=== PATIENT | male | born 1930 | race Caucasian/White ===

== ENCOUNTER 2022-07-26 15:15 | Inpatient (IN) | payer MEDICARE, BC ==
[~2022-07-26] VITALS: Ht 177.8 cm; Wt 66.2 kg
--- NOTE | 2022-07-26 15:49 | NUR ---
[id number] FOR SYNCOPAL EPISODE FROM [facility] 30 MINS AGO. BG 169 A/O X1 RESPONSIVE TO NAME NOT A RELIABLE HISTORIAN. DENIED PAIN ANYWHERE ON BODY.
[2022-07-26] MEDS ORDERED: APIX2.5T PO (15:52)
[2022-07-26] MEDS ORDERED: ASPI-1169 PO (15:52)
[2022-07-26] MEDS ORDERED: ATOR40TA PO (15:52)
[2022-07-26] MEDS ORDERED: FURO-145 PO (15:52)
[2022-07-26] MEDS ORDERED: FINA5TAB3 PO (15:52)
--- NOTE | 2022-07-26 15:55 | NUR ---
COVID SWAB OBTAINED SENT TO LAB
--- NOTE | 2022-07-26 16:13 | NUR ---
MOVE SHEET SUBMITTED
--- NOTE | 2022-07-26 16:55 | NUR ---
PHLEB AT BEDSIDE FOR BLOOD DRAW
[2022-07-26 17:29] LABS: BASOPHILS % (AUTO) 0.1 % (0.0-2.0); EOSINOPHILS % (AUTO) 0.5 % (0.0-6.0); HEMATOCRIT 42 % (39-51); HEMOGLOBIN 13.5 g/dL (13.5-17.5); LYMPHOCYTES # (AUTO) 0.4 K/uL (0.8-4.8); LYMPHOCYTES % (AUTO) 3.3 % (20.0-44.0); MEAN CORPUSCULAR HGB CONC 33 g/dl (31.0-36.0); MEAN CORPUSCULAR VOLUME 94 fL (80-96); MONOCYTES # (AUTO) 0.3 K/uL (0.1-1.30); MONOCYTES % (AUTO) 2.4 % (2.0-12.0); NEUTROPHILS # (AUTO) 12.5 K/uL (1.8-8.9); NEUTROPHILS % (AUTO) 93.7 % (43.0-81.0); PLATELET COUNT (AUTO) 241 K/uL (150-450); RED BLOOD CELL COUNT(AUTO) 4.42 MIL/uL (4.5-6.0); WHITE BLOOD COUNT (AUTO) 13.3 K/uL (4.3-11.0)
--- NOTE | 2022-07-26 17:31 | NUR ---
PT TAKEN TO CT
[2022-07-26 17:40] LABS: CALCIUM, SERUM 7.8 mg/dL (8.5-10.1); CARBON DIOXIDE 28 mmol/L (21-32); CHLORIDE 103 mmol/L (98-107); CREATININE 1.1 mg/dL (0.6-1.3); GLUCOSE 112 mg/dL (74-106); POTASSIUM 2.9 mmol/L (3.5-5.1); SODIUM SERUM 139 mmol/L (136-145); UREA NITROGEN, BLOOD 10 mg/dL (7-18)
[2022-07-26 17:54] LABS: ALANINE AMINOTRANSFERASE 15 U/L (12-78); ALBUMIN 2.6 g/dL (3.4-5.0); ALKALINE PHOSPHATASE 102 U/L (46-116); ASPARTATE AMINOTRANSFERASE 27 U/L (15-37); BILIRUBIN,DIRECT 0.3 mg/dL (0.0-0.2); BILIRUBIN,TOTAL 1.6 mg/dL (0.2-1.0); TOTAL PROTEIN, SERUM 7.2 g/dL (6.4-8.2)
[2022-07-26] MEDS ORDERED: POTASSIUM CHLORIDE 20 MEQ TAB.PRT.SR PO ONE ×2 (19:00→19:22)
[2022-07-26] MEDS ORDERED: ONDANSETRON HCL/PF 4 MG/2 ML VIAL IVP PRN (20:00)
[2022-07-26] MEDS ORDERED: MAG HYDROX/AL HYDROX/SIMETH 30 ML UDC PO PRN (20:00)
[2022-07-26] MEDS ORDERED: Z GUARD REMEDY 4 OZ OINT TP PRN (20:00)
[2022-07-26] MEDS ORDERED: ZOLPIDEM TARTRATE 5 MG TABLET PO PRN (20:00)
[2022-07-26] MEDS ORDERED: MAGNESIUM HYDROXIDE 30 ML UDC PO PRN (20:00)
[2022-07-26] MEDS ORDERED: ACETAMINOPHEN 325 MG TABLET PO PRN (20:00)
[2022-07-26] MEDS ORDERED: BUMETANIDE INJ 0.25 MG/ML VIAL IV ONE ×2 (21:30→23:00)
[2022-07-26] MEDS ORDERED: ATORVASTATIN 40 MG TABLET PO SCH (22:00)
--- NOTE | 2022-07-26 22:04 | NUR ---
REPORT GIVEN TO DUY HENSLEY FOR ANIA
[2022-07-26 22:10] VITALS: BP 116/65
[2022-07-26 22:20] VITALS: BP 116/65
[2022-07-26] MEDS ORDERED: LEVOFLOXACIN 500 MG /D5W 100ML 500 MG in PREMIX 1 EA IV SCH ×2 (22:30→23:00)
[2022-07-26] MEDS: ATORVASTATIN 40 MG TABLET PO SCH (22:56)
[2022-07-26] MEDS ORDERED: LEVOFLOXACIN 500 MG /D5W 100ML 100 ML IV ONE (22:57)
--- NOTE | 2022-07-26 23:00 | NUR ---
[facility] ASSISTANTPRODUCTION POSTING CLERK NOTES RECEIVED PATIENT FROM ED VIA GURNEY AT 2212 UNDER THE CARE OF ERIK LILLY MD WITH DX OF ACUTE CHF AND SYNCOPE. PATIENT DOES NOT ANSWER MOST OF THE QUESTIONS AND A POOR HISTORIAN. PER PATIENT, HE DOESN'T HAVE ANY FAMILY FOR US TO CALL AND NO MEDICAL RECORDS ATTACHED IN THE CHART. INFORMATION TAKEN FROM MD/ER REPORT. PATIENT IS A/O X1. BREATHING EVEN AND NON-LABORED ON ROOM AIR. NOT IN APPARENT DISTRESS. NO PAIN OR DISCOMFORT NOTED. ON TELE MONITOR READING A-PACING AT 67 BPM. HAS RIGHT ANTECUBITAL IV ACCESS #20G AND SALINE LOCKED. NO S/S OF INFILTRATION NOTED. V/S TAKEN. PHYSICAL AND SKIN ASSESSMENT DONE. ALL BELONGINGS ACCOUNTED FOR. ORIENTED PATIENT TO UNIT AND STAFF. SAFETY PRECAUTIONS IN PLACE: BED LOCKED AND IN LOWEST POSITION, SIDE RAILS UP X3, CALL LIGHT WITHIN REACH. WILL CONTINUE POC.
[2022-07-27] VITALS (7 sets, daily range): BP systolic 97–131; BP diastolic 54–71
[2022-07-27 07:06] LABS: BASOPHILS % (AUTO) 0.1 % (0.0-2.0); EOSINOPHILS % (AUTO) 3.6 % (0.0-6.0); HEMATOCRIT 37 % (39-51); HEMOGLOBIN 12.7 g/dL (13.5-17.5); LYMPHOCYTES # (AUTO) 1.2 K/uL (0.8-4.8); LYMPHOCYTES % (AUTO) 15.3 % (20.0-44.0); MEAN CORPUSCULAR HGB CONC 34 g/dl (31.0-36.0); MEAN CORPUSCULAR VOLUME 93 fL (80-96); MONOCYTES # (AUTO) 0.3 K/uL (0.1-1.30); MONOCYTES % (AUTO) 4.2 % (2.0-12.0); NEUTROPHILS # (AUTO) 5.8 K/uL (1.8-8.9); NEUTROPHILS % (AUTO) 76.8 % (43.0-81.0); PLATELET COUNT (AUTO) 246 K/uL (150-450); RED BLOOD CELL COUNT(AUTO) 4.01 MIL/uL (4.5-6.0); WHITE BLOOD COUNT (AUTO) 7.5 K/uL (4.3-11.0)
--- NOTE | 2022-07-27 07:09 | NUR ---
PRACTICE MANAGER CLOSING NOTES PATIENT LAYING IN BED ASLEEP, EASY TO AROUSE. ABLE TO FOLLOW COMMAND. STABLE THROUGHOUT THE SHIFT. SATURATING AT 95%-98% ON ROOM AIR. NO C/O PAIN, N/V. AFEBRILE. ON TELE MONITOR READING SINUS RHYTHM AND A-PACING AT 63 BPM. RIGHT ANTECUBITAL IV ACCESS #20G INTACT, PATENT AND FLUSHING. ALL DUE MEDS GIVEN AND NEEDS ATTENDED. SAFETY PRECAUTIONS MAINTAINED. WILL ENDORSE TO NEXT SHIFT FOR ANIA.
[2022-07-27 07:13] LABS: CALCIUM, SERUM 8.6 mg/dL (8.5-10.1); MAGNESIUM 1.9 mg/dL (1.8-2.4); PHOSPHORUS 3.1 mg/dL (2.5-4.9); POTASSIUM 3.4 mmol/L (3.5-5.1)
--- NOTE | 2022-07-27 07:27 | NUR ---
BROADCAST METEOROLOGIST OPENING NOTES RECEIVED PATIENT AWAKE IN BED IN NO ACUTE SIGNS OF DISTRESS. A/OX1-2. VERBALLY RESPONSIVE, DENIES PAIN OR ANY DISCOMFORTS AT THIS TIME. ON ROOM AIR, TOLERATING WELL, BREATHING EVEN AND UNLABORED. TELE-MONITOR SHOWS A-PACING WITH HR OF 70 @ THIS TIME, NO C/O CARDIAC DISTRESS VOICED. IV ACCESS ON RAC #20G INTACT, PATENT AND SALINE LOCKED. ALL SAFETY MEASURES IN PLACE: BED LOCKED AND AT LOWEST POSITION, RAILS UP X2 AND PADDED, BED ALARM ON AND CALL BENÍTEZ WITHIN REACH. WILL CONTINUE TO MONITOR PATIENT.
[2022-07-27] MEDS: FINASTERIDE (5 MG) 5 MG TABLET PO SCH (08:35)
[2022-07-27] MEDS: ASPIRIN 81 MG TAB.CHEW PO SCH (08:36)
[2022-07-27] MEDS: APIXABAN 2.5 MG TABLET PO SCH ×2 (08:37→17:02)
--- NOTE | 2022-07-27 08:44 | NUR ---
WOUND CARE CONSULT: PT PRESENTS WITH SACRAL INTACT DEEP TISSUE INJURY WITH SCARRING, PRESENT ON ADMISSION. RECOMMENDATIONS MADE FOR SKIN PROTECTION. DISCUSSED WITH NURSING STAFF. IN AGREEMENT WITH PLAN OF CARE. Addendum: 07/27/22 at 0845 by ARDHA AGUILLON WNDNU Amended: Links added.
--- NOTE | 2022-07-27 09:07 | NUR ---
RN NOTES ORTHOSTATIC BP CHECKED AND RECORDED. SEE V/S FLOW SHEET.
[2022-07-27] MEDS ORDERED: POTASSIUM CHLORIDE 20 MEQ POWDER PACKET PO ONE (11:00)
[2022-07-27] MEDS: CEFTRIAXONE 2 G in IV D5W 100 ML IV SCH (14:37)
[2022-07-27] MEDS ORDERED: CEFEPIME 2 GM in IV D5W 100 ML IV SCH (15:00)
--- NOTE | 2022-07-27 15:30 | NUR ---
RN NOTES URINE SPECIMEN COLLECTED FOR U/A AND CULTURE COLLECTED AND SENT TO LAB. SPUTUM SPECIMEN STILL FOR COLLECTION FOR CULTURE .
[2022-07-27 15:39] LABS: BILIRUBIN,URINE NEGATIVE (NEGATIVE); COLOR,URINE YELLOW (YELLOW); LEUKOCYTE ESTERASE ,URINE NEGATIVE (NEGATIVE); NITRITE, URINE NEGATIVE (NEGATIVE); PROTEIN,URINE NEGATIVE (NEGATIVE); UGLUCOSE NEGATIVE (NEGATIVE); UROBILINOGEN,URINE 0.2 EU/dL (0.2)
--- NOTE | 2022-07-27 18:49 | NUR ---
RESTORATIVE ART EMBALMER CLOSING NOTES PATIENT IN BED ASLEEP AT THIS TIME, EASILY AROUSABLE TO STIMULI. HOB ELEVATED. PT IS A/OX1-2. ABLE TO COMMUNICATE VERBALLY BUT VERY PASSIVE. ON ROOM AIR, TOLERATING WELL, BREATHING EVEN AND UNLABORED. TELE-MONITOR SHOWS A-PACING WITH HR ON THE 77 BPM @ THIS TIME, NO C/O CARDIAC DISTRESS VOICED DURING SHIFT. IV ACCESS ON RAC G#20 INTACT, PATENT AND FLUSHES WELL. PT TURNED AND REPOSITIONED Q 2HRS AND PRN. ALL NEEDS AND CARE ANTICIPATED AND MET. ALL SAFETY MEASURES IN PLACE: BED LOCKED AND AT LOWEST POSITION, SIDE-RAILS UP X3, BED ALARM ON AND CALL BENÍTEZ WITHIN REACH. WILL ENDORSE ANIA TO RIVET PASSER NURSE
--- NOTE | 2022-07-27 19:45 | NUR ---
TELERN AWAKE, LIMITED VERBAL RESPONSE WHEN ASKED. NO SOB. SAFETY PRECAUTIONS EMPHASIZED APPEARS TO UNDERSTAND. PLAN OF CARE AND MEDICATION REGIMEN DISCUASSED WIT PATIENT APPEARS TO UNDERSTAND. CONTINUED MONITORING.CLOSELY WATCHED
[2022-07-27] MEDS ORDERED: CEFEPIME 1 GM in IV D5W 50 ML IV SCH (21:00)
[2022-07-27] MEDS: ATORVASTATIN 40 MG TABLET PO SCH (21:40)
[2022-07-27] MEDS ORDERED: LEVOFLOXACIN 500 MG /D5W 100ML 500 MG in PREMIX 1 EA IV SCH (23:00)
[2022-07-28] VITALS (7 sets, daily range): BP systolic 104–126; BP diastolic 54–78
--- NOTE | 2022-07-28 06:00 | NUR ---
TELERN MORE AWAKE STILL LIMITED VERBAL.. HAD BM TWICE. UNABLE TO PROVIDE SPUTUM NO COUGH. REMAINS AV PACING, CONTINUED MONITORING.
[2022-07-28 07:44] LABS: CALCIUM, SERUM 8.6 mg/dL (8.5-10.1); CARBON DIOXIDE 30 mmol/L (21-32); CHLORIDE 104 mmol/L (98-107); CREATININE 1.1 mg/dL (0.6-1.3); GLUCOSE 97 mg/dL (74-106); POTASSIUM 3.6 mmol/L (3.5-5.1); SODIUM SERUM 140 mmol/L (136-145); UREA NITROGEN, BLOOD 16 mg/dL (7-18)
[2022-07-28 07:53] LABS: BASOPHILS % (AUTO) 0.2 % (0.0-2.0); HEMATOCRIT 40 % (39-51); HEMOGLOBIN 13.1 g/dL (13.5-17.5); LYMPHOCYTES % (AUTO) 10.5 % (20.0-44.0); MEAN CORPUSCULAR HGB CONC 32 g/dl (31.0-36.0); MEAN CORPUSCULAR VOLUME 94 fL (80-96); MONOCYTES # (AUTO) 0.7 K/uL (0.1-1.30); MONOCYTES % (AUTO) 6.6 % (2.0-12.0); NEUTROPHILS # (AUTO) 7.9 K/uL (1.8-8.9); NEUTROPHILS % (AUTO) 79.7 % (43.0-81.0); PLATELET COUNT (AUTO) 261 K/uL (150-450); RED BLOOD CELL COUNT(AUTO) 4.29 MIL/uL (4.5-6.0); WHITE BLOOD COUNT (AUTO) 9.9 K/uL (4.3-11.0)
[2022-07-28] MEDS: ASPIRIN 81 MG TAB.CHEW PO SCH (09:40)
[2022-07-28] MEDS: APIXABAN 2.5 MG TABLET PO SCH ×2 (09:44→17:20)
[2022-07-28] MEDS: FINASTERIDE (5 MG) 5 MG TABLET PO SCH (09:45)
[2022-07-28] MEDS: CEFTRIAXONE 2 G in IV D5W 100 ML IV SCH (14:13)
--- NOTE | 2022-07-28 19:35 | NUR ---
TELERN FULLY AWAKE, LIMITED VERBAL.ASSISTED REPOSITIONING. V/S STABLE. CONTINUED MONITORING
[2022-07-28] MEDS: ATORVASTATIN 40 MG TABLET PO SCH (21:28)
--- NOTE | 2022-07-28 23:00 | NUR ---
TELERN HS CARE DONE HAD LARGE BM , DUE MEDS GIVEN WITH PUDDING ASSISTED ATE 100%. REPOSITIONED
[2022-07-29] VITALS: BP 140/71
[2022-07-29 00:17] VITALS: BP 140/71
--- NOTE | 2022-07-29 06:00 | NUR ---
TELERN REMAINS UNCHANGE, CONTINUED MONITORING,
[2022-07-29 07:04] LABS: BASOPHILS % (AUTO) 0.5 % (0.0-2.0); EOSINOPHILS % (AUTO) 3.3 % (0.0-6.0); HEMATOCRIT 39 % (39-51); HEMOGLOBIN 13.1 g/dL (13.5-17.5); LYMPHOCYTES # (AUTO) 1.1 K/uL (0.8-4.8); LYMPHOCYTES % (AUTO) 12.3 % (20.0-44.0); MEAN CORPUSCULAR HGB CONC 34 g/dl (31.0-36.0); MEAN CORPUSCULAR VOLUME 93 fL (80-96); MONOCYTES # (AUTO) 0.7 K/uL (0.1-1.30); MONOCYTES % (AUTO) 8.3 % (2.0-12.0); NEUTROPHILS # (AUTO) 6.6 K/uL (1.8-8.9); NEUTROPHILS % (AUTO) 75.6 % (43.0-81.0); PLATELET COUNT (AUTO) 229 K/uL (150-450); RED BLOOD CELL COUNT(AUTO) 4.15 MIL/uL (4.5-6.0); WHITE BLOOD COUNT (AUTO) 8.7 K/uL (4.3-11.0)
[2022-07-29 07:16] LABS: CALCIUM, SERUM 8.3 mg/dL (8.5-10.1); CARBON DIOXIDE 25 mmol/L (21-32); CHLORIDE 104 mmol/L (98-107); CREATININE 0.9 mg/dL (0.6-1.3); GLUCOSE 104 mg/dL (74-106); MAGNESIUM 2.1 mg/dL (1.8-2.4); PHOSPHORUS 3.7 mg/dL (2.5-4.9); POTASSIUM 3.3 mmol/L (3.5-5.1); SODIUM SERUM 138 mmol/L (136-145); UREA NITROGEN, BLOOD 15 mg/dL (7-18)
--- NOTE | 2022-07-29 07:30 | NUR ---
PEANUT SORTER OPENING NOTES RECEIVED PATIENT AWAKE IN BED IN NO ACUTE SIGNS OF DISTRESS. A/OX1-2. VERBALLY RESPONSIVE, DENIES PAIN OR ANY DISCOMFORTS AT THIS TIME. ON ROOM AIR, TOLERATING WELL, BREATHING EVEN AND UNLABORED. TELE-MONITOR SHOWS A-PACING WITH HR OF 75 @ THIS TIME, NO C/O CARDIAC DISTRESS VOICED. IV ACCESS ON RAC #20G INTACT, PATENT AND SALINE LOCKED. ALL SAFETY MEASURES IN PLACE: BED LOCKED AND AT LOWEST POSITION, RAILS UP X2 AND PADDED, BED ALARM ON AND CALL BENÍTEZ WITHIN REACH. WILL CONTINUE TO MONITOR PATIENT.
[2022-07-29] MEDS: ASPIRIN 81 MG TAB.CHEW PO SCH (08:44)
[2022-07-29] MEDS: FINASTERIDE (5 MG) 5 MG TABLET PO SCH (08:45)
[2022-07-29] MEDS: APIXABAN 2.5 MG TABLET PO SCH ×2 (08:46→18:23)
[2022-07-29] MEDS ORDERED: POTASSIUM CHLORIDE 20 MEQ TAB.PRT.SR PO SCH (11:00)
[2022-07-29] MEDS: CEFTRIAXONE 2 G in IV D5W 100 ML IV SCH (14:08)
--- NOTE | 2022-07-29 19:00 | NUR ---
SENIOR BUSINESS BROKER CLOSING NOTES PATIENT IN BED AWAKE, A/OX1-2. ON ROOM AIR, TOLERATING WELL, BREATHING EVEN AND UNLABORED. TELE-MONITOR SHOWS A-PACING WITH HR ON THE 70 BPM @ THIS TIME, NO C/O CARDIAC DISTRESS VOICED DURING SHIFT. IV ACCESS ON LEFT HAND G#22 INTACT, PATENT AND FLUSHES WELL. PT TURNED AND REPOSITIONED Q 2HRS AND PRN. ALL NEEDS AND CARE ANTICIPATED AND MET. ALL SAFETY MEASURES IN PLACE: BED LOCKED AND AT LOWEST POSITION, SIDE-RAILS UP X3, BED ALARM ON AND CALL BENÍTEZ WITHIN REACH. WILL ENDORSE ANIA TO IT WEB DEVELOPMENT CONSULTANT NURSE
--- NOTE | 2022-07-29 19:00 | NUR ---
[employer] ELECT[employer] OFFICER NOTE RECEIVED THE PATIENT IN BED, AWAKE, CONFUSED. ASKED HIS NAME, PATIENT REFUSED TO ANSWER. AO X 1. PATIENT IS VERY AGITATED, REFUSED TO WEAR TELE MONITOR, AND PULL THE LEADS OFF HIS CHEST. PATIENT DOES NOT HAVE IV ACCESS DUE TO THE IV CATHETER HAS BEEN REMOVED SOMETIME BY THE PATIENT ALREADY. TRYING TO PUT THE TELE MONITOR LEADS BACK TO THE PATIENT, PATIENT REFUSED. TRYING TO REINSERT AN IV ACCESS ON THE PATIENT, PATIENT REFUSED AND HITTING THE NURSES WITH FISTS. MEANWHILE, FIGHTING WITH HIS ARMS AND KICKING WITH HIS LEGS. PATIENT REFUSED BEING TAKEN VITAL SIGNS WELL. NOTIFIED. CHARGE NURSE MARGAUX NOTIFIED. SAFETY MEASURES ARE IN PLACE: BED IN LOWEST AND LOCKED POSITION; SIDE RAILS UP X 3; CALL LIGHT AND TABLE ARE IN REACH. WILL CONTINUE MONITOR THE PATIENT'S STATUS AND PROVIDE THE CARE PATIENT NEEDS.
[2022-07-29] MEDS: QUETIAPINE FUMARATE 25 MG TABLET PO PRN ×2 (20:19→20:58)
--- NOTE | 2022-07-29 20:58 | NUR ---
GUM ROLLING MACHINE OPERATOR NOTE RECEIVED MD ORDER SEROQUEL 12.5 MG FOR AGITATION. CRUSHED THE MEDICATION AND MIXED IT WITH APPLE SAUCE, PATIENT SPITTED IT OUT. TRYING TO PERSUADE THE PATIENT TO TAKE THE MEDS, PATIENT STILL REFUSED. CHARGE NURSE, MARGAUX, NOTIFIED.
[2022-07-29] MEDS: ATORVASTATIN 40 MG TABLET PO SCH (22:00)
--- NOTE | 2022-07-29 22:00 | NUR ---
IMPORTER OR EXPORTER NOTE PATIENT IS CALM NOW. TALKED WITH THE PATIENT. AND PROVIDED WATER AND APPLE SAUCE TO HIM. PATIENT IS ABLE TO AGREE WITH PUTTING THE EXTERNAL ANGLESMITH ON. ON THE MONITOR, PATIENT'S HEART RHYTHM IS A-PACING AT 70S.
[2022-07-30 01:25] VITALS: BP 160/54
[2022-07-30 04:28] VITALS: BP 142/70
[2022-07-30 06:42] LABS: BASOPHILS % (AUTO) 0.5 % (0.0-2.0); EOSINOPHILS % (AUTO) 4.6 % (0.0-6.0); HEMATOCRIT 41 % (39-51); HEMOGLOBIN 13.3 g/dL (13.5-17.5); LYMPHOCYTES % (AUTO) 12.8 % (20.0-44.0); MEAN CORPUSCULAR HGB CONC 33 g/dl (31.0-36.0); MEAN CORPUSCULAR VOLUME 95 fL (80-96); MONOCYTES # (AUTO) 0.7 K/uL (0.1-1.30); NEUTROPHILS # (AUTO) 5.8 K/uL (1.8-8.9); NEUTROPHILS % (AUTO) 73.1 % (43.0-81.0); PLATELET COUNT (AUTO) 255 K/uL (150-450); RED BLOOD CELL COUNT(AUTO) 4.33 MIL/uL (4.5-6.0); WHITE BLOOD COUNT (AUTO) 7.9 K/uL (4.3-11.0)
--- NOTE | 2022-07-30 07:30 | NUR ---
COLD MEAT CHEF OPENING NOTE PATIENT IN BED SLEEPING, EASILY AROUSED TO STIMULI. ON SOFT RESTRAIN ON THE WRISTS BILATERAL. RESTRAIN PROTOCOL HAS BEEN FOLLOWED, NO SIGNS OF BLEEDING NOTED. PATIENT DOES NOT HAVE IV ACCESS DUE TO THE IV CATHETER HAS BEEN REMOVED SOMETIME BY THE PATIENT ALREADY. PATIENT REFUSED TO HAVE ANOTHER IV ACCESS. PATIENT IS ON TELE MONITOR, A-PACING AND SOMETIMES V-PACING AT 80s. PATIENT IS ON RA, TOLERATED WELL. NO S/S OF DISTRESS OR SOB. SAFETY PRECAUTIONS ARE IN PLACE: BED IN LOWEST AND LOCKED POSITION; CALL LIGHT AND TABLE ARE IN REACH; SIDE RAILS UP X 3. TO MONITOR.
[2022-07-30 07:41] LABS: CALCIUM, SERUM 8.6 mg/dL (8.5-10.1); CARBON DIOXIDE 25 mmol/L (21-32); CHLORIDE 105 mmol/L (98-107); CREATININE 0.9 mg/dL (0.6-1.3); GLUCOSE 106 mg/dL (74-106); MAGNESIUM 2.1 mg/dL (1.8-2.4); PHOSPHORUS 3.1 mg/dL (2.5-4.9); SODIUM SERUM 141 mmol/L (136-145); UREA NITROGEN, BLOOD 12 mg/dL (7-18)
--- NOTE | 2022-07-30 07:45 | NUR ---
PHONOGRAPH MECHANIC CLOSING NOTE PATIENT IS IN BED SLEEPING. HE IS ON SOFT RESTRAIN ON THE WRISTS BILATERAL. THROUGH THE NIGHT, RESTRAIN PROTOCOL HAS BEEN FOLLOWED. PATIENT DOES NOT HAVE IV ACCESS DUE TO THE IV CATHETER HAS BEEN REMOVED SOMETIME BY THE PATIENT ALREADY. PATIENT REFUSED TO HAVE ANOTHER IV ACCESS. PATIENT IS ON TELE MONITOR, A-PACING AND SOMETIMES V-PACING AT 80s. PATIENT IS ON RA, TOLERATED WELL. NO S/S OF DISTRESS OR SOB. PATIENT HAD 3 TIMES OF BM THROUGH THE FIBERGLASS PRODUCT TESTER, REPORT GIVEN TO THE NEXT SHIFT NURSE FOR CONTINUE MONITORING THE PATIENT. SAFETY PRECAUTIONS ARE IN PLACE: BED IN LOWEST AND LOCKED POSITION; CALL LIGHT AND TABLE ARE IN REACH; SIDE RAILS UP X 3. ENDORSED THE NEXT SHIFT NURSE FOR CONTINUE PATIENT CARE.
[2022-07-30 08:48] VITALS: BP 100/72
[2022-07-30] MEDS: ASPIRIN 81 MG TAB.CHEW PO SCH (09:52)
[2022-07-30] MEDS: FINASTERIDE (5 MG) 5 MG TABLET PO SCH (09:52)
[2022-07-30] MEDS: APIXABAN 2.5 MG TABLET PO SCH ×2 (09:54→17:57)
[2022-07-30] MEDS ORDERED: POTASSIUM CHLORIDE 20 MEQ POWDER PACKET PO ONE (10:00)
[2022-07-30 12:02] VITALS: BP 112/70
[2022-07-30] MEDS: CEFTRIAXONE 2 G in IV D5W 100 ML IV SCH (14:00)
[2022-07-30 16:26] VITALS: BP 83/46
--- NOTE | 2022-07-30 19:00 | NUR ---
PURCHASE REQUEST EDITOR OPENING NOTE PATIENT IS IN BED, AWAKE, CONFUSED. HE ONLY KNEW HIS NAME; AO X 1. PATIENT IS ON RA, NO S/S OF DISTRESS OR SOB. VITAL SIGNS ARE WNL. ACCORDING TO CHANGE SHIFT REPORT, PATIENT IS GOING TO BE [facility] WAITING FOR CLEARANCE FROM DR. VERNON. PATIENT IS ON TELE MONITOR, PATIENT'S HEART RHYTHM ON THE MONITOR IS: SR WITH A-PACING AND V PACING; HEART RATE IS AROUND 100. PATIENT IS CALM AND STABLE. SAFETY MEASURES ARE IN PLACE: BED IN LOWEST AND LOCKED POSITION; SIDE RAILS UP X 3; CALL LIGHT AND TABLE ARE IN REACH. WILL CONTINUE MONITOR THE PATIENT'S STATUS AND PROVIDE THE CARE PATIENT NEEDS.
--- NOTE | 2022-07-30 19:43 | NUR ---
PROSTHETIC LAB TECHNICIAN CLOSING NOTE PATIENT AWAKE IN BED A/O X1. PATIENT DOES NOT HAVE IV ACCESS DUE TO THE IV CATHETER HAS BEEN REMOVED SOMETIME BY THE PATIENT ALREADY. PATIENT REFUSED TO HAVE ANOTHER IV ACCESS. PATIENT IS ON TELE MONITOR, A-PACING AND SOMETIMES V-PACING AT 80s. PATIENT IS ON RA, TOLERATED WELL. NO S/S OF DISTRESS OR SOB. PATIENT FOR DISCHARGE ORDERED, REPORT GIVEN TO [facility]. SAFETY PRECAUTIONS ARE IN PLACE: BED IN LOWEST AND LOCKED POSITION; CALL LIGHT AND TABLE ARE IN REACH; SIDE RAILS UP X 3. ENDORSED THE NEXT SHIFT NURSE FOR CONTINUE PATIENT CARE.
--- NOTE | 2022-07-30 21:20 | NUR ---
OFFLINE EDITORRIBBON WEAVER NOTE PATIENT IS CLEARED BY MD. VERNON. CHARGE NURSE, MARGAUX, WAS NOTIFIED. MARGAUX, RN, CALLED THE AMBULANCE TO TRANSFER THE PATIENT TO THE [facility]. VITALS SIGNS WERE TAKEN BEFORE LEAVING THE FOLLOWING: BP IS 117/62; HR IS 65; RESPIRATION RATE IS 18; AND O2 SAT IS AT 92% ON RA. REPORT WAS GIVEN TO THE AMBULANCE TRANSPORT PERSONNEL. PATIENT'S TELE MONITOR AND ARM BAND HAVE BEEN REMOVED. PATIENT DOES NOT HAVE IV ACCESS. PATIENT IS TRANSPORTED ON THE GURNEY TO THE FACILITY.
[2022-07-30] MEDS: ATORVASTATIN 40 MG TABLET PO SCH (22:00)
== END 2022-07-31 | disposition home health service (06) | DRG 73 ==
LOC: ER 17:00 → TELE 21:26
PROVIDERS: ADMIT Nurse Practitioner Acute Care; ATTEND Student in an Organized Health Care Education/Training Program
DX: G90.8 Other disorders of autonomic nervous system (principal); G93.41 Metabolic encephalopathy; J15.9 Unspecified bacterial pneumonia; I50.33 Acute on chronic diastolic (congestive) heart failure; E44.0 Moderate protein-calorie malnutrition; N39.0 Urinary tract infection, site not specified; I48.91 Unspecified atrial fibrillation; Z20.822 Contact with and (suspected) exposure to COVID-19; Z79.01 Long term (current) use of anticoagulants; Z95.0 Presence of cardiac pacemaker; F03.90 Unspecified dementia, unspecified severity, without behavioral disturbance, psychotic disturbance, mood disturbance, and anxiety; Z88.0 Allergy status to penicillin; Z79.82 Long term (current) use of aspirin; Z79.899 Other long term (current) drug therapy; E87.6 Hypokalemia; E83.51 Hypocalcemia; E78.5 Hyperlipidemia, unspecified; E88.09 Other disorders of plasma-protein metabolism, not elsewhere classified; E80.6 Other disorders of bilirubin metabolism; N40.0 Benign prostatic hyperplasia without lower urinary tract symptoms; R53.1 Weakness; R32 Unspecified urinary incontinence; Z87.01 Personal history of pneumonia (recurrent)
CPT/HCPCS: 36415; 70450-TC; 71045-TC; 80048-TC; 80076-TC; 83735-TC; 83880; 84100-TC; 84484-TC; 85025-TC; 87040-TC; 87081-TC; 87522; 87806; 92526; 92611-TC; 93307-TC; 97110-TC; 97112-TC; 97116-TC; 97530-TC; 97535-TC; A4216; C9803; G0378; J0692; J0696; J1956; J3490; J7030; J7050; J7060